=== PATIENT | female | born 1975 | race Caucasian/White ===

== ENCOUNTER → 2018-02-06 07:57 | Outpatient (CLI) | payer OTHER, SELFPAY ==
--- NOTE | 2018-02-06 08:00 | SATEXT_ITS ---
Assessment: Janeen presents for nutritional counseling for weight management. She reports frustration with difficulty losing weight despite working hard at caloric restriction and increasing physical activity. She also reports that her blood sugars have been going up but she does not want to take medications. She states she wants to work hard to get her weight down to prevent diabetes. Her A1C is 6.7. Janeen does not report having a diagnosis a diabetes. She is 61 and 197 lbs. Nutritional Diagnosis: Class 2 obesity as evidenced by BMI of 36.4 kg/m2. Intervention: Acknowledged Janeen's frustration of caloric restriction and increased physical activity and not seeing the results she wanted. We operated in the context of prediabetes and insulin resistance. Explained that in some cases the body has difficulty metabolizing carbohydrates. Suggested that she continue eating similarly to how she has but changing the proportion so that her diet is low in carbohydrate, higher in protein and higher in fat. Reviewed carbohydrate counting with Janeen and suggested that she have no more than 30 grams of carbohydrate per meal. Outlined for her how to add more protein and healthy fats to satisfy her hunger. Janeen verbalized a good understanding of the information. I anticipate that Janeen will make these changes for at least a trial period based on her motivation level. Encouraged Janeen to keep up with at least 30 minutes of moderate intensity physical activity daily as she has been doing and to also add in any muscle toning that she is able to do. Monitoring and Evaluation: 1. Janeen will self monitor her progress on her action plans and will follow up with me as needed for support. 2. Will evaluate nutrition care plan ongoing and adjust as needed. Thank you for the referral.
== END ==
PROVIDERS: PCP Nurse Practitioner Gerontology; Visit Provider Dietitian, Registered
DX: E66.9 Obesity, unspecified (principal); Z68.36 Body mass index [BMI] 36.0-36.9, adult; Z71.3 Dietary counseling and surveillance
CPT/HCPCS: 97802

== ENCOUNTER → 2018-02-12 02:26 | Outpatient (CLI) | payer OTHER, SELFPAY ==
[2018-02-12 11:21] LABS: Glucose 127 mg/dL (70-100)
[2018-02-12 11:50] LABS: Hemoglobin A1C 6.7 % (4.5-6.2)
== END ==
PROVIDERS: PCP Nurse Practitioner Gerontology; Visit Provider Nurse Practitioner Family
DX: E11.9 Type 2 diabetes mellitus without complications (principal)
CPT/HCPCS: 36415; 82947; 83036

== ENCOUNTER 2018-05-19 02:02 | Outpatient (CLI) | payer OTHER, SELFPAY ==
[2018-05-19 08:33] LABS: Hemoglobin A1C 6.3 % (4.5-6.2)
== END 2018-05-19 02:22 ==
PROVIDERS: PCP Nurse Practitioner Family; Visit Provider Nurse Practitioner Family
DX: E11.9 Type 2 diabetes mellitus without complications (principal)
CPT/HCPCS: 36415; 83036

== ENCOUNTER 2019-02-04 02:17 | Outpatient (CLI) | payer OTHER, SELFPAY ==
[2019-02-04 08:21] LABS: Hemoglobin A1C 6.9 % (4.5-6.2)
[2019-02-04 08:41] LABS: ALT 24 U/L (12-78); AST 16 U/L (15-37); Albumin 3.2 g/dL (3.4-5.0); Alkaline Phosphatase 71 U/L (46-116); Anion Gap 11.4 mmol/L (3-11); BUN 13 mg/dL (7-18); Bilirubin, Total 0.2 mg/dL (0.2-1.0); CO2 24.6 mmol/L (21.0-32.0); CREATININE 0.71 mg/dL (0.55-1.02); Calcium 8.4 mg/dL (8.5-10.1); Chloride 102 mmol/L (98-107); Glucose 143 mg/dL (70-100); Potassium 4.2 mmol/L (3.5-5.1); Sodium 138 mmol/L (136-145); Total Protein 6.8 g/dL (6.4-8.2)
[2019-02-04 08:54] LABS: Calculated LDL 135 mg/dL; Cholesterol 215 mg/dL (50-200); HDL Cholesterol 52 mg/dL (40-60); Triglyceride 142 mg/dL (30-150)
== END 2019-02-04 02:37 ==
PROVIDERS: PCP Nurse Practitioner Family; Visit Provider Nurse Practitioner Family
DX: E11.9 Type 2 diabetes mellitus without complications (principal); E78.5 Hyperlipidemia, unspecified
CPT/HCPCS: 36415; 80053; 80061; 83721; 83036

== ENCOUNTER 2020-03-21 02:31 | Outpatient (CLI) | payer OTHER, SELFPAY ==
[2020-03-21 08:26] LABS: Hemoglobin A1C 7.3 % (<5.7)
[2020-03-21 09:14] LABS: Anion Gap 8.1 mmol/L (3-11); BUN 12 mg/dL (7-18); CO2 30.9 mmol/L (21.0-32.0); CREATININE 0.73 mg/dL (0.55-1.02); Calcium 8.8 mg/dL (8.5-10.1); Calculated LDL 122 mg/dL (<100); Chloride 100 mmol/L (98-107); Cholesterol 204 mg/dL (<200); Glucose 153 mg/dL (74-106); HDL Cholesterol 50 mg/dL (40-60); Potassium 3.7 mmol/L (3.5-5.1); Sodium 139 mmol/L (136-145); Triglyceride 162 mg/dL (<150)
== END 2020-03-21 02:51 ==
PROVIDERS: PCP Nurse Practitioner Family; Visit Provider Nurse Practitioner Family
DX: Z00.00 Encounter for general adult medical examination without abnormal findings (principal); E11.9 Type 2 diabetes mellitus without complications
CPT/HCPCS: 36415; 80048; 80061; 86900; 86901; 83036

== ENCOUNTER 2021-01-18 09:20 | Outpatient (REF) | payer OTHER, SELFPAY ==
[2021-01-18 14:16] LABS: ALT 22 U/L (14-59); AST 22 U/L (15-37); Albumin 3.6 g/dL (3.4-5.0); Alkaline Phosphatase 78 U/L (46-116); Anion Gap 14.9 mmol/L (3-11); BUN 13 mg/dL (7-18); Bilirubin, Total 0.4 mg/dL (0.2-1.0); CO2 26.1 mmol/L (21.0-32.0); CREATININE 0.7 mg/dL (0.55-1.02); Calcium 9.3 mg/dL (8.5-10.1); Calculated LDL 128 mg/dL (<100); Chloride 99 mmol/L (98-107); Cholesterol 223 mg/dL (<200); Glucose 164 mg/dL (74-106); HDL Cholesterol 53 mg/dL (40-60); Potassium 3.8 mmol/L (3.5-5.1); Sodium 140 mmol/L (136-145); TSH (W/Ref FT4) 1.78 uIU/mL (0.36-3.74); Total Protein 7.4 g/dL (6.4-8.2); Triglyceride 214 mg/dL (<150)
== END 2021-01-18 09:21 | disposition home or self-care (01) ==
LOC: LBN 09:20
PROVIDERS: PCP Nurse Practitioner Family; Visit Provider Nurse Practitioner Family
DX: E11.9 Type 2 diabetes mellitus without complications (principal)
CPT/HCPCS: 80053; 80061; 84443

== ENCOUNTER 2021-05-03 21:17 | Outpatient (REF) | payer OTHER, SELFPAY ==
[2021-05-03 20:17] LABS: Calculated LDL 73 mg/dL (<100); Cholesterol 151 mg/dL (<200); HDL Cholesterol 52 mg/dL (40-60); Triglyceride 132 mg/dL (<150)
== END 2021-05-03 21:18 | disposition home or self-care (01) ==
LOC: LBN 21:17
PROVIDERS: PCP Nurse Practitioner Family; Visit Provider Nurse Practitioner Family
DX: E78.5 Hyperlipidemia, unspecified (principal); E11.9 Type 2 diabetes mellitus without complications
CPT/HCPCS: 80061

== ENCOUNTER 2021-10-08 02:49 | Outpatient (CLI) | payer OTHER, SELFPAY ==
[2021-10-08 09:04] LABS: ALT 25 U/L (14-59); AST 18 U/L (15-37); Albumin 3.8 g/dL (3.4-5.0); Alkaline Phosphatase 95 U/L (46-116); Anion Gap 9.7 mmol/L (3-11); BUN 14 mg/dL (7-18); Bilirubin, Total 0.6 mg/dL (0.2-1.0); CO2 29.3 mmol/L (21.0-32.0); CREATININE 0.8 mg/dL (0.55-1.02); Calcium 9.1 mg/dL (8.5-10.1); Chloride 101 mmol/L (98-107); Glucose 147 mg/dL (74-106); Lipase 267 U/L (73-393); Potassium 3.2 mmol/L (3.5-5.1); Sodium 140 mmol/L (136-145); Total Protein 6.7 g/dL (6.4-8.2)
== END 2021-10-08 02:50 | disposition home or self-care (01) ==
LOC: LBO 02:49
PROVIDERS: PCP Nurse Practitioner Family; Visit Provider Nurse Practitioner Family
DX: R10.10 Upper abdominal pain, unspecified (principal); E11.9 Type 2 diabetes mellitus without complications
CPT/HCPCS: 36415; 80053; 83690

== ENCOUNTER 2022-07-29 02:59 | Outpatient (CLI) | payer BC, SELFPAY ==
[2022-07-29 08:17] LABS: Anion Gap 8.5 mmol/L (3-11); BUN 12 mg/dL (7-18); CO2 31.5 mmol/L (21.0-32.0); CREATININE 0.7 mg/dL (0.55-1.02); Calcium 9.4 mg/dL (8.5-10.1); Calculated LDL 81 mg/dL (<100); Chloride 100 mmol/L (98-107); Cholesterol 152 mg/dL (<200); Estimated GFR 107.28 (mL/min/1.73m2); Glucose 139 mg/dL (74-106); HDL Cholesterol 59 mg/dL (40-60); Potassium 3.1 mmol/L (3.5-5.1); Sodium 140 mmol/L (136-145); Triglyceride 62 mg/dL (<150)
== END 2022-07-29 03:00 | disposition home or self-care (01) ==
PROVIDERS: PCP Nurse Practitioner Family; Visit Provider Nurse Practitioner Family
DX: E11.9 Type 2 diabetes mellitus without complications (principal)
CPT/HCPCS: 36415; 80048; 80061

== ENCOUNTER 2022-09-24 02:56 | Outpatient (CLI) | payer BC, SELFPAY ==
[2022-09-24 13:14] LABS: Potassium 3.3 mmol/L (3.5-5.1)
== END 2022-09-24 02:57 | disposition home or self-care (01) ==
LOC: LBO 02:58
PROVIDERS: PCP Nurse Practitioner Family; Visit Provider Nurse Practitioner Family
DX: E87.6 Hypokalemia (principal); I10 Essential (primary) hypertension; E11.9 Type 2 diabetes mellitus without complications
CPT/HCPCS: 36415; 84132

== ENCOUNTER 2022-11-19 03:01 | Outpatient (CLI) | payer BC, SELFPAY ==
[2022-11-19 09:28] LABS: Potassium 3.9 mmol/L (3.5-5.1)
== END 2022-11-19 03:02 | disposition home or self-care (01) ==
LOC: LBO 03:02
PROVIDERS: PCP Nurse Practitioner Family; Visit Provider Nurse Practitioner Family
DX: E87.6 Hypokalemia (principal); I10 Essential (primary) hypertension
CPT/HCPCS: 36415; 84132

== ENCOUNTER 2023-10-17 03:03 | Outpatient (CLI) | payer BC, SELFPAY ==
[2023-10-17 13:08] LABS: Abs Immature Grans 0.02 10^3/uL (0.0-0.06); Absolute Basophil Count 0.06 10^3/uL (0.0-0.2); Absolute Eosinophil Count 0.16 10^3/uL (0.0-0.7); Absolute Lymphocyte Count 2.01 10^3/uL (1.2-3.4); Absolute Monocyte Count 0.35 10^3/uL (0.1-0.8); Eosinophils % 2.6; HCT 43.8 % (36.0-46.0); HGB 14.3 g/dL (11.2-15.7); Immature Grans % 0.3; Lymphocytes % 32.4; MCH 29.5 pg (27.0-33.0); MCHC 32.6 % (32.0-36.0); MCV 91 fL (80-95); Monocytes % 5.6; Neutrophils % 58.1; Platelet Count 358 10^3/uL (130-400); RBC 4.84 10^6/uL (3.93-5.22); RDW-SD 39.8 fL
[2023-10-17 13:55] LABS: Anion Gap 8.3 mmol/L (3-11); BUN 14 mg/dL (7-18); CO2 28.7 mmol/L (21.0-32.0); CREATININE 0.8 mg/dL (0.55-1.02); Calcium 9.3 mg/dL (8.5-10.1); Calculated LDL 49 mg/dL (<100); Chloride 102 mmol/L (98-107); Cholesterol 123 mg/dL (<200); Estimated GFR 90.27 (mL/min/1.73m2); Glucose 135 mg/dL (74-106); HDL Cholesterol 55 mg/dL (40-60); Potassium 3.6 mmol/L (3.5-5.1); Sodium 139 mmol/L (136-145); Triglyceride 97 mg/dL (<150)
[2023-10-20 10:21] LABS: Hepatitis C Ab w Rflx HCV PCR Negative (Negative)
== END 2023-10-17 03:04 | disposition home or self-care (01) ==
PROVIDERS: PCP Nurse Practitioner Family; Visit Provider Nurse Practitioner Family
DX: Z00.00 Encounter for general adult medical examination without abnormal findings (principal)
CPT/HCPCS: 36415; 80048; 80061; 86803; 85025

== ENCOUNTER 2024-10-06 15:50 | Outpatient (REF) | payer BC, SELFPAY ==
[2024-10-06 12:44] LABS: COMMENT (LAB VIEW ONLY) 82.02 mg/dL; Microalb ug/mg Crea 12.6 ug/mg Cr
== END 2024-10-06 15:51 | disposition home or self-care (01) ==
LOC: LBN 15:50
PROVIDERS: PCP Nurse Practitioner Family; Visit Provider Nurse Practitioner Family
DX: E11.9 Type 2 diabetes mellitus without complications (principal); Z23 Encounter for immunization; D12.6 Benign neoplasm of colon, unspecified; E78.5 Hyperlipidemia, unspecified; I10 Essential (primary) hypertension; Z71.89 Other specified counseling
CPT/HCPCS: 82043; 82570

== ENCOUNTER 2024-10-13 02:21 | Outpatient (CLI) | payer BC, SELFPAY ==
[2024-10-13 08:03] LABS: Anion Gap 7.6 mmol/L (3-11); BUN 14 mg/dL (7-18); CO2 27.4 mmol/L (21.0-32.0); CREATININE 0.8 mg/dL (0.55-1.02); Calcium 9.5 mg/dL (8.5-10.1); Chloride 105 mmol/L (98-107); Estimated GFR 89.71 (mL/min/1.73m2); Glucose 145 mg/dL (74-106); Potassium 4.2 mmol/L (3.5-5.1); Sodium 140 mmol/L (136-145)
[2024-10-14 09:15] LABS: HIV-1/2 Ag & Ab Screen Negative (Negative)
[2024-10-14 10:26] LABS: HBs Antibody, Quant <3.1 mIU/mL (See Note); Hep B Surface Ab Negative (See Note); Hepatitis B Core Antibody Negative (Negative); Hepatitis B Surface Antigen Negative (Negative)
== END 2024-10-13 02:22 | disposition home or self-care (01) ==
PROVIDERS: PCP Nurse Practitioner Family; Visit Provider Nurse Practitioner Family
DX: Z11.4 Encounter for screening for human immunodeficiency virus [HIV] (principal); E11.9 Type 2 diabetes mellitus without complications; Z11.59 Encounter for screening for other viral diseases
CPT/HCPCS: 36415; 80048; 86704; 86706; 87340; 87389